=== PATIENT | male | born 1955 | race Caucasian/White ===

== ENCOUNTER 2021-11-10 18:04 | Inpatient (IN) | payer MEDICAID ==
[~2021-11-10] VITALS: Ht 167.6 cm; Wt 62.1 kg
--- NOTE | 2021-11-10 19:41 | NUR ---
RN OPENING NOTES RECEIVED PT IN BED, AWAKE. AOx4, ABLE TO MAKE NEEDS KNOWN. PT IS SYRIAC SPEAKER. ON RA AND TOLERATING WELL. NO SOB NOTED. NO S/SX OF RESPIRATORY DISTRESS NOTED. IV ACCESS LAC #20G. IV IS INTACT, PATENT, AND FLUSHING WELL. SAFETY PRECAUTIONS IN PLACE: BED IN LOWEST, LOCKED POSITION, SIDERAILS UPx2, AND BRAKES ON. TABLE AND CALL LIGHT WITHIN REACH. ALL NEEDS MET AT THIS TIME. Addendum: 11/11/21 at 0254 by KRYSTEN SANDOVAL RN PT IS AOx2-3.
[2021-11-10 20:00] VITALS: BP 122/61
[2021-11-10] MEDS ORDERED: ONDANSETRON HCL/PF 4 MG/2 ML VIAL IVP PRN (22:00)
[2021-11-10] MEDS ORDERED: IV NS 0.9% 1,000 ML IV PRN (22:00)
[2021-11-10 23:25] LABS: BASOPHILS % (AUTO) 0.1 % (0.0-2.0); LYMPHOCYTES # (AUTO) 0.4 K/uL (0.8-4.8); LYMPHOCYTES % (AUTO) 1.3 % (20.0-44.0); MEAN CORPUSCULAR HGB CONC 33 g/dl (31.0-36.0); MEAN CORPUSCULAR VOLUME 84 fL (80-96); MONOCYTES % (AUTO) 3.1 % (2.0-12.0); NEUTROPHILS # (AUTO) 30.8 K/uL (1.8-8.9); NEUTROPHILS % (AUTO) 94.5 % (43.0-81.0); PLATELET COUNT (AUTO) 389 K/uL (150-450); RED BLOOD CELL COUNT(AUTO) 2.32 MIL/uL (4.5-6.0)
[2021-11-10 23:31] LABS: CALCIUM, SERUM 9.1 mg/dL (8.5-10.1); POTASSIUM 4.4 mmol/L (3.5-5.1)
[2021-11-10 23:39] LABS: CREATININE 8.5 mg/dL (0.6-1.3)
--- NOTE | 2021-11-10 23:47 | NUR ---
RN NOTES RECEIVED CRITICAL LAB VALUE FOR BUN OF 119 AND CREATININE OF 8.5. ROGER OTERO NP, MADE AWARE. NO NEW ORDERS.
[2021-11-10] MEDS: IV NS 0.9% 1,000 ML IV PRN (23:51)
[2021-11-11] VITALS (10 sets, daily range): BP systolic 109–145; BP diastolic 62–74
[2021-11-11 00:02] LABS: HEMATOCRIT 20 % (39-51)
[2021-11-11 00:04] LABS: HEMOGLOBIN 6.3 g/dL (13.5-17.5); WHITE BLOOD COUNT (AUTO) 32.5 K/uL (4.3-11.0)
--- NOTE | 2021-11-11 00:16 | NUR ---
RN NOTES ROGER OTERO, ANTON, MADE AWARE OF CRITICAL LAB VALUE OF WBC OF 32.5 AND HEMOGLOBIN OF 6.3. STATED SHE WILL "PLACE ORDERS."
--- NOTE | 2021-11-11 01:23 | NUR ---
RN NOTES CONTACTED GIRLFRIEND OLGA @ AND SHE RELAYED BROTHER'S CONTACT OF TAWNYA KIM WITH NUMBER . ATTEMPTED TO CONTACT BROTHER FOR BLOOD TRANSFUSION CONSENT BUT CALL GOES STRAIGHT TO VOICEMAIL. WILL CONTACT AGAIN AT A LATER.
[2021-11-11 02:28] LABS: BASOPHILS % (MANUAL) 0 % (0.0-2.0); EOSINOPHILS % (MANUAL) 0 % (0-4); LYMPHOCYTES % (MANUAL) 4 % (16-48); MONOCYTES % (MANUAL) 5 % (0-11.0); NEUTROPHILS % (MANUAL) 91 (42-76)
--- NOTE | 2021-11-11 04:33 | NUR ---
RN NOTES ATTEMPTED TO CALL FAMILY MEMBER, TAWNYA, AGAIN WITH NO ANSWER. MADE SENIOR COST ACCOUNTANT, ROGER, AWARE AND SHE GAVE VERBAL CONSENT TO BLOOD TRANSFUSION.
--- NOTE | 2021-11-11 06:44 | NUR ---
RN NOTES RECEIVED FAX FROM [facility] FOR BLOOD CULTURE THAT WAS POSITIVE FOR GRAM POSITIVE [facility] IN [place]. WILL ENDORSE TO ONCOMING SHIFT FOR JERARDO.
--- NOTE | 2021-11-11 07:03 | NUR ---
RN CLOSING NOTES PT IN BED, AWAKE. PT IS ALERT BUT REFUSES TO ANSWER ORIENTATION QUESTION AND ALSO BECOMES AGITATED. PT IS ITALIAN SPEAKER. ON RA AND TOLERATING WELL. NO SOB NOTED. NO S/SX OF RESPIRATORY DISTRESS NOTED. IV ACCESS LAC #20G RUNNING BLOOD TRANSFUSION. NO SIGNS OR SYMPTOMS OF REACTION. ALL ORDERS CARRIED OUT. ALL NEEDS MET. PT KEPT CLEAN AND DRY. SAFETY PRECAUTIONS IN PLACE: BED IN LOWEST, LOCKED POSITION, SIDERAILS UPx2, AND BRAKES ON. TABLE AND CALL LIGHT WITHIN REACH.WILL ENDORSE TO ONCOMING SHIFT FOR JERARDO.
--- NOTE | 2021-11-11 07:50 | NUR ---
RN OPENING NOTE PATIENT AWAKE IN BED RESTING. A/O X 1-2, CONFUSED. NO PAIN NOTED AT THIS TIME. ON ROOM AIR, NO DISTRESS OR SHORTNESS OF BREATH NOTED. IV ACCESS LAC #20G, RFA #20G INTACT, PATENT AND FLUSHING WELL. PATIENT HAVE EXTERNAL PLISSE MACHINE OPERATOR HELPER WITH CURRENT READING OF SR AND HR OF 93. FALL AND SAFETY MEASURES IN PLACE, BED IN LOW AND LOCK POSITION, CALL LIGHT AND TABLE WITHIN EASY REACH, SIDE RAILS UP X2. WILL CONTINUE TO MONITOR.
[2021-11-11] MEDS: PANTOPRAZOLE 40 MG VIAL IV SCH (08:20)
[2021-11-11] MEDS ORDERED: VANCOMYCIN 1 GM in IV D5W 250 ML IV SCH (09:00)
[2021-11-11 09:13] LABS: COLOR,URINE YELLOW (YELLOW); LEUKOCYTE ESTERASE ,URINE MODERATE (NEGATIVE); NITRITE, URINE NEGATIVE (NEGATIVE)
[2021-11-11 09:14] LABS: PH,URINE 6.5 (5.0-8.0); PROTEIN,URINE 1+ mg/dl (NEGATIVE); UROBILINOGEN,URINE 0.2 EU/dL (0.2)
[2021-11-11 09:15] LABS: BILIRUBIN,URINE NEGATIVE (NEGATIVE); UGLUCOSE NEGATIVE (NEGATIVE)
[2021-11-11 10:55] LABS: BACTERIA,URINE Moderate /HPF (None Seen); SQUAMOUS EPITHELIAL CELL,UR Few /HPF (None Seen); WBC,URINE TOO NUMEROUS TO COUN /HPF (0-3)
--- NOTE | 2021-11-11 11:35 | NUR ---
RN NOTE PHARMACY CALLED WITH CRITICAL LABS, WBC: 32.7, BUN:106, Cr:7.6, DOCTOR ALEXANDRO WAS IN THE UNIT AND INFORMED. WILL CONTINUE TO MONITOR.
[2021-11-11 11:40] LABS: BASOPHILS % (AUTO) 0.1 % (0.0-2.0); EOSINOPHILS % (AUTO) 0.8 % (0.0-6.0); HEMATOCRIT 23 % (39-51); HEMOGLOBIN 7.5 g/dL (13.5-17.5); LYMPHOCYTES # (AUTO) 0.4 K/uL (0.8-4.8); LYMPHOCYTES % (AUTO) 1.3 % (20.0-44.0); MEAN CORPUSCULAR HGB CONC 33 g/dl (31.0-36.0); MEAN CORPUSCULAR VOLUME 85 fL (80-96); MONOCYTES # (AUTO) 0.7 K/uL (0.1-1.30); MONOCYTES % (AUTO) 2.1 % (2.0-12.0); NEUTROPHILS # (AUTO) 31.3 K/uL (1.8-8.9); NEUTROPHILS % (AUTO) 95.7 % (43.0-81.0); PLATELET COUNT (AUTO) 394 K/uL (150-450); RED BLOOD CELL COUNT(AUTO) 2.74 MIL/uL (4.5-6.0)
[2021-11-11 11:55] LABS: WHITE BLOOD COUNT (AUTO) 32.7 K/uL (4.3-11.0)
[2021-11-11 12:16] LABS: IRON, SERUM 21 ug/dl (50-175); TOTAL IRON BINDING CAPACITY 90 ug/dl (250-450)
[2021-11-11 12:18] LABS: CALCIUM, SERUM 9.7 mg/dL (8.5-10.1); MAGNESIUM 2.4 mg/dL (1.8-2.4); PHOSPHORUS 4.3 mg/dL (2.5-4.9)
[2021-11-11 12:28] LABS: CREATININE 7.6 mg/dL (0.6-1.3)
[2021-11-11] MEDS: ACETAMINOPHEN 325 MG TABLET PO PRN (12:47)
[2021-11-11 13:14] LABS: LYMPHOCYTES % (MANUAL) 2 % (16-48); MONOCYTES % (MANUAL) 2 % (0-11.0); NEUTROPHILS % (MANUAL) 96 (42-76)
[2021-11-11 13:26] LABS: FERRITIN 3085 ng/mL (8-388)
--- NOTE | 2021-11-11 18:54 | NUR ---
RN CLOSING NOTE PATIENT AWAKE IN BED RESTING. A/O X 1-2, CONFUSED. NO PAIN NOTED AT THIS TIME. ON ROOM AIR, NO DISTRESS OR SHORTNESS OF BREATH NOTED. IV ACCESS LAC #20G, RFA #20G INTACT, PATENT AND FLUSHING WELL. PATIENT HAVE EXTERNAL METALIZING SUPERVISOR WITH CURRENT READING OF SR AND HR OF 80. SCHEDULE MEDICATIONS ADMINISTERED. FALL AND SAFETY MEASURES IN PLACE, BED IN LOW AND LOCK POSITION, CALL LIGHT AND TABLE WITHIN EASY REACH, SIDE RAILS UP X2. WILL ENDORSE TO FLY RAIL OPERATOR.
[2021-11-11] MEDS ORDERED: MAG HYDROX/AL HYDROX/SIMETH 30 ML UDC PO PRN (19:00)
--- NOTE | 2021-11-11 19:30 | NUR ---
RN OPENING NOTE PATIENT IN BED, AWAKE. FAMILY AT BEDSIDE, GIRLFRIEND AND BROTHER ARNEL. PATIENT IS ON RA, TOLERATING WELL. NO SOB NOTED. BREATHING EVEN AND UNLABORED. PATIENT IS ON TELE MONITOR READING SR 85 BPM. PER GF, PATIENT WAS COMPLAINING OF SOME INDIGESTION, PER AGUS MACDONALD, CHANTEL PENDING VERIFICATION. SAFETY MEASURES IN PLACE: BED LOCKED AND IN LOWEST POSITION, CALL LIGHT WITHIN REACH, SIDE RAILS UP. WILL MONITOR PATIENT CLOSELY.
--- NOTE | 2021-11-11 20:30 | NUR ---
PATIENT GIVEN MAALOX FOR INDIGESTION/STOMACH PAIN.
[2021-11-11] MEDS: HEPARIN SODIUM, PORCINE 5000 UNITS/1 ML VIAL SQ SCH (21:36)
--- NOTE | 2021-11-11 21:37 | NUR ---
PER MD JIMENEZ TO GIVE HEPARIN 5,000 UNITS DOSE TONIGHT IF NO SIGNS OF BLEEDING. PATIENT DOES NOT HAVE ANY SIGNS OF BLEEDING AT THIS TIME.
[2021-11-11] MEDS: IV NS 0.9% 1,000 ML IV PRN (22:47)
[2021-11-12 00:29] VITALS: BP 135/70
[2021-11-12 04:00] VITALS: BP 136/72
[2021-11-12] MEDS: ACETAMINOPHEN 325 MG TABLET PO PRN ×2 (04:42→15:32)
--- NOTE | 2021-11-12 04:50 | NUR ---
PATIENT NOTED TO BE MOANING AND RESTLESS. TYLENOL GIVEN FOR PAIN ON HIS BACK.
[2021-11-12 06:05] LABS: EOSINOPHILS % (AUTO) 0.1 % (0.0-6.0); HEMATOCRIT 23 % (39-51); HEMOGLOBIN 7.6 g/dL (13.5-17.5); LYMPHOCYTES # (AUTO) 0.5 K/uL (0.8-4.8); LYMPHOCYTES % (AUTO) 1.3 % (20.0-44.0); MEAN CORPUSCULAR HGB CONC 33 g/dl (31.0-36.0); MEAN CORPUSCULAR VOLUME 86 fL (80-96); MONOCYTES # (AUTO) 1.1 K/uL (0.1-1.30); NEUTROPHILS # (AUTO) 35.3 K/uL (1.8-8.9); NEUTROPHILS % (AUTO) 95.6 % (43.0-81.0); PLATELET COUNT (AUTO) 381 K/uL (150-450); RED BLOOD CELL COUNT(AUTO) 2.72 MIL/uL (4.5-6.0)
[2021-11-12 06:19] LABS: MAGNESIUM 2.3 mg/dL (1.8-2.4); PHOSPHORUS 4.3 mg/dL (2.5-4.9); POTASSIUM 4.1 mmol/L (3.5-5.1)
--- NOTE | 2021-11-12 06:53 | NUR ---
RN CLOSING NOTE PATIENT IN BED, EYES CLOSED, EASILY AWAKENED. PATIENT IS A/O X 1-2. MAKES NEEDS KNOWN WHEN ASKED. PATIENT IS ON RA, TOLERATING WELL. NO SOB NOTED. BREATHING EVEN AND UNLABORED. PATIENT IS ON TELE MONITOR READING SR-ST 108 BPM. RFA 20 G RUNNING NS AT 100 ML/HR, INFUSING WELL. LAC 20G SALINE LOCKED AT THIS TIME. SAFETY MEASURES IN PLACE: BED LOCKED AND IN LOWEST POSITION, CALL LIGHT WITHIN REACH, SIDE RAILS UP. ALL NEEDS MET AND ATTENDED. ALL ORDERS CARRIED OUT. WILL ENDORSE TO DAY SHIFT NURSE FOR JERARDO.
--- NOTE | 2021-11-12 07:15 | NUR ---
TACTICAL DEBRIEFER OPENING NOTES: RECIEVED PATIENT IN BED, ASLEEP AND EASILY AROUSED WITH STIMULI. NO SOB OR CARDIAC DISTRESS NOTED, AFEBRILE, ON ROOM AIR AND TOLERATING WELL. ON DIRECTOR OF CORPORATE STRATEGY: CURRENT READING SINUS TACH 102 BOM Addendum: 11/12/21 at 0921 by CHRISTELLE CISNEROS RN UNFINISHED
--- NOTE | 2021-11-12 07:15 | NUR ---
LICENSED PROSTHETIST/ORTHOTIST OPENING NOTES: RECEIVED PATIENT IN BED, ASLEEP AND EASILY AROUSED WITH STIMULI. NO SOB OR CARDIAC DISTRESS NOTED, AFEBRILE, ON ROOM AIR AND TOLERATING WELL. ON CENTER DIRECTOR: CURRENT READING SINUS TACH 102 BPM, IV ACCESS ON LAC G#20, RFA G#20 NS @100ML/HR. PATENT INTACT AND INFUSING IVF WELL. DENIES PAIN AT THIS TIME. SAFETY PRECAUTIONS MAINTAINED: BED LOCKED AND IN LOWEST POSITION, SIDE RAILS UP X 2 CALL LIGHT IN EASY REACH FOR HELP, WILL MONITOR ACCORDINGLY.
[2021-11-12 08:00] VITALS: BP 120/72
[2021-11-12] MEDS: HEPARIN SODIUM, PORCINE 5000 UNITS/1 ML VIAL SQ SCH ×2 (08:33→21:22)
[2021-11-12] MEDS: PANTOPRAZOLE 40 MG VIAL IV SCH (08:34)
[2021-11-12 10:32] LABS: LYMPHOCYTES % (MANUAL) 4 % (16-48); MONOCYTES % (MANUAL) 2 % (0-11.0); NEUTROPHILS % (MANUAL) 94 (42-76)
[2021-11-12 12:00] VITALS: BP_SYST 119; BP_SYST 136; BP_DIAS 66; BP_DIAS 69
[2021-11-12] MEDS: IV NS 0.9% 1,000 ML IV PRN (15:32)
[2021-11-12 16:00] VITALS: BP_SYST 119; BP_DIAS 56; BP_DIAS 72
--- NOTE | 2021-11-12 19:01 | NUR ---
POLICY AND PLANNING MANAGER CLOSING NOTES: PATIENT IN BED, AWAKE. A/O X 2. NO SOB OR CARDIAC DISTRESS NOTED, AFEBRILE, ON ROOM AIR AND TOLERATING WELL. ON ICT QUALITY ASSURANCE ENGINEER: CURRENT READING SINUS RHYTHM 94 BPM, IV ACCESS ON LAC G#20, RFA G#20 NS @100ML/HR. PATENT INTACT AND INFUSING IVF WELL. DENIES PAIN AT THIS TIME. SAFETY PRECAUTIONS MAINTAINED: BED LOCKED AND IN LOWEST POSITION, SIDE RAILS UP X 2 CALL LIGHT IN EASY REACH FOR HELP, WILL MONITOR ACCORDINGLY. ENDORSED TO [facility] SHIFT FOR JERARDO.
[2021-11-12 20:00] VITALS: BP 126/73
--- NOTE | 2021-11-12 20:10 | NUR ---
RN OPENING NOTE PATIENT ASLEEP IN BED. A/OX1. NO S/S OF DISTRESS, BREATHING WITHOUT DIFFICULTY ON ROOM AIR. LAC #20 SL INTACT AND PATENT; RFA #20 INTACT AND PATENT W/ NS 100ML/HR. TELE READS SR 94. SAFETY MEASURES IN PLACE: BED AT LOWEST LEVEL AND LOCKED, RAILS UP X2, CALL DUONG WITHIN REACH. WILL CONTINUE TO MONITOR PATIENT.
[2021-11-12] MEDS ORDERED: CEFEPIME 1 GM VIAL ONE (22:59)
[2021-11-12] MEDS: CEFEPIME 1 GM in IV D5W 50 ML IV SCH (23:48)
[2021-11-13] VITALS: BP 151/73
[2021-11-13 04:00] VITALS: BP 152/75
[2021-11-13] MEDS: IV NS 0.9% 1,000 ML IV PRN ×2 (05:30→18:22)
[2021-11-13 06:04] LABS: EOSINOPHILS % (AUTO) 0.1 % (0.0-6.0); HEMATOCRIT 27 % (39-51); HEMOGLOBIN 8.4 g/dL (13.5-17.5); LYMPHOCYTES # (AUTO) 0.9 K/uL (0.8-4.8); LYMPHOCYTES % (AUTO) 2.2 % (20.0-44.0); MEAN CORPUSCULAR HGB CONC 32 g/dl (31.0-36.0); MEAN CORPUSCULAR VOLUME 88 fL (80-96); MONOCYTES # (AUTO) 1.2 K/uL (0.1-1.30); MONOCYTES % (AUTO) 3.2 % (2.0-12.0); NEUTROPHILS # (AUTO) 37.2 K/uL (1.8-8.9); NEUTROPHILS % (AUTO) 94.5 % (43.0-81.0); PLATELET COUNT (AUTO) 409 K/uL (150-450); RED BLOOD CELL COUNT(AUTO) 3.01 MIL/uL (4.5-6.0)
--- NOTE | 2021-11-13 06:44 | NUR ---
RN CLOSING NOTE PATIENT AWAKE IN BED. A/OX4. NO S/S OF DISTRESS, BREATHING WITHOUT DIFFICULTY ON ROOM AIR. LAC #20 SL INTACT AND PATENT; RFA #20 INTACT AND PATENT W/ NS 100ML/HR. TELE READS SR 95. SAFETY MEASURES IN PLACE: BED LOCKED AND AT LOWEST POSITION, RAILS UP X2, CALL DUONG WITHIN REACH. WILL ENDORSE TO NEXT SHIFT FOR JERARDO.
[2021-11-13 07:10] LABS: CALCIUM, SERUM 10.3 mg/dL (8.5-10.1); CREATININE 5.9 mg/dL (0.6-1.3); MAGNESIUM 2.3 mg/dL (1.8-2.4); PHOSPHORUS 4.8 mg/dL (2.5-4.9); POTASSIUM 4.1 mmol/L (3.5-5.1)
--- NOTE | 2021-11-13 07:30 | NUR ---
MICA PARTS SPRAYER NOTES PT IN BED, AWAKE, ALERT AND VERBALLY RESPONSIVE, NO COMPLAINT OF PAIN, BREATHING PATTERN NORMAL, CALL LIGHT WITHIN REACH, F/C IN PLACE, BED AT ITS LOWEST POSITION, KEPT COMFORTABLE.
[2021-11-13 08:00] VITALS: BP 150/76
[2021-11-13 08:37] LABS: WHITE BLOOD COUNT (AUTO) 39.4 K/uL (4.3-11.0)
[2021-11-13] MEDS: PANTOPRAZOLE 40 MG TABLET.DR PO SCH (09:22)
[2021-11-13] MEDS: HEPARIN SODIUM, PORCINE 5000 UNITS/1 ML VIAL SQ SCH ×2 (09:23→21:03)
--- NOTE | 2021-11-13 10:15 | NUR ---
BRAKE RELINER NOTES PT SEEN AND ASSESSED AT BEDSIDE BY SPEECH THERAPIST FRANCK, RECOMMENDATIONS NOTED.
[2021-11-13 12:00] VITALS: BP 157/81
[2021-11-13] MEDS: ACETAMINOPHEN 325 MG TABLET PO PRN ×2 (12:38→20:19)
[2021-11-13] MEDS ORDERED: VANCOMYCIN 0.75 GM in IV D5W 250 ML IV SCH (13:00)
[2021-11-13 13:45] LABS: THYROID STIMULATING HORMONE 1.588 uIU/mL (0.358-3.74)
[2021-11-13 14:04] LABS: BASOPHILS % (MANUAL) 0 % (0.0-2.0); EOSINOPHILS % (MANUAL) 0 % (0-4); LYMPHOCYTES % (MANUAL) 4 % (16-48); MONOCYTES % (MANUAL) 5 % (0-11.0); NEUTROPHILS % (MANUAL) 91 (42-76)
[2021-11-13 16:00] VITALS: BP 124/76
--- NOTE | 2021-11-13 18:33 | NUR ---
AIR TWISTER WINDER NOTES PT IN BED, AWAKE, ALERT AND VERBALLY RESPONSIVE, NOT IN DISTRESS, FAMILY AT BEDSIDE, NO COMPLAINT AT THIS TIME, IV FLUIDS INFUSING WELL, CALL LIGHT WITHIN REACH, F/C IN PLACE AND DRAINING WELL WITH CLEAR, YELLOW URINE, PM CARE PROVIDED, AFEBRILE AT THIS TIME, ALL NEEDS ATTENDED.
--- NOTE | 2021-11-13 20:28 | NUR ---
MS/TELE/RN ON INITIAL SHIFT ROUND AT 1930, PATIENT WAS IN BED AWAKE, ALERT, NO C/O PAIN, NO SIGNS DISTRESS NOTED, CALL LIGHT IN REACH, FALL PRECAUTIONS PER PROTOCOL IMPLEMENTED. PRESENTLY, PATIENT C/O MILD PAIN AT BOTH SHOULDERS REQUESTED FOR MEDICATION, TYLENOL 65F0 MG PO WAS GIVEN ORDERED. WILL MONITOR.
[2021-11-13 20:35] VITALS: BP 152/70
[2021-11-13] MEDS: CEFEPIME 1 GM in IV D5W 50 ML IV SCH (21:02)
[2021-11-14] VITALS (8 sets, daily range): BP systolic 134–176; BP diastolic 63–99
--- NOTE | 2021-11-14 00:27 | NUR ---
MS/TELE/RN PATIENT IS SLEEPING AT THIS TIME, NO SIGNS OF DISTRESS NOTED, CALL LIGHT IN REACH, WILL CONTINUE TO MONITOR.
[2021-11-14] MEDS: IV NS 0.9% 1,000 ML IV PRN ×2 (05:50→16:54)
--- NOTE | 2021-11-14 06:23 | NUR ---
MS/TELE/RN PATIENT IS STILL SLEEPING, NO SIGNS OF DISTRESS NOTED, CALL LIGHT IN REACH, ALL NEEDS ATTENDED AT THIS TIME, WILL CONTINUE TO MONITOR.
[2021-11-14 06:46] LABS: EOSINOPHILS % (AUTO) 0.2 % (0.0-6.0); HEMATOCRIT 27 % (39-51); HEMOGLOBIN 8.4 g/dL (13.5-17.5); LYMPHOCYTES # (AUTO) 0.8 K/uL (0.8-4.8); MEAN CORPUSCULAR HGB CONC 32 g/dl (31.0-36.0); MEAN CORPUSCULAR VOLUME 87 fL (80-96); MONOCYTES # (AUTO) 1.1 K/uL (0.1-1.30); MONOCYTES % (AUTO) 2.9 % (2.0-12.0); NEUTROPHILS # (AUTO) 35.8 K/uL (1.8-8.9); NEUTROPHILS % (AUTO) 94.9 % (43.0-81.0); PLATELET COUNT (AUTO) 438 K/uL (150-450); RED BLOOD CELL COUNT(AUTO) 3.06 MIL/uL (4.5-6.0)
[2021-11-14 06:53] LABS: WHITE BLOOD COUNT (AUTO) 37.7 K/uL (4.3-11.0)
[2021-11-14 06:57] LABS: CALCIUM, SERUM 9.8 mg/dL (8.5-10.1); CREATININE 4.8 mg/dL (0.6-1.3); POTASSIUM 3.8 mmol/L (3.5-5.1)
[2021-11-14 07:06] LABS: IMMUNOGLOBULIN A, SERUM 316 mg/dL (61-437); IMMUNOGLOBULIN G, SERUM 1615 mg/dL (603-1613); IMMUNOGLOBULIN M, SERUM 32 mg/dL (20-172)
--- NOTE | 2021-11-14 07:30 | NUR ---
SUPERVISOR TELLERS NOTES PT IN BED, AWAKE, ALERT AND VERBALLY RESPONSIVE, WITH PERIODS OF CONFUSION, NO SIGN OF PAIN, IV FLUIDS INFUSING WELL, CALL LIGHT WITHIN REACH, F/C IN PLACE, DRAINING WELL WITH CLEAR, YELLOW URINE, KEPT CLEAN AND DRY.
[2021-11-14] MEDS: PANTOPRAZOLE 40 MG TABLET.DR PO SCH (08:28)
[2021-11-14] MEDS: HEPARIN SODIUM, PORCINE 5000 UNITS/1 ML VIAL SQ SCH ×2 (08:29→21:15)
--- NOTE | 2021-11-14 10:18 | NUR ---
ENTRY LEVEL FINANCE NOTES PT RESTING, SEEN AND EXAMINED BY DR. CHILO MD INFORMED OF ELEVATED BP, AWAITING FURTHER ORDERS.
[2021-11-14 12:03] LABS: BASOPHILS % (MANUAL) 0 % (0.0-2.0); EOSINOPHILS % (MANUAL) 0 % (0-4); LYMPHOCYTES % (MANUAL) 5 % (16-48); NEUTROPHILS % (MANUAL) 92 (42-76)
[2021-11-14] MEDS: VANCOMYCIN 1 GM in IV D5W 250ml IV SCH (12:26)
[2021-11-14] MEDS: CLONIDINE HCL 0.1 MG TABLET PO PRN (13:15)
[2021-11-14 14:08] LABS: *SPE A/G RATIO 0.5 (0.7-1.7); *SPE ALPHA-1-GLOBULIN 0.6 g/dL (0.0-0.4); *SPE ALPHA-2-GLOBULIN 0.9 g/dL (0.4-1.0); *SPE BETA GLOBULIN 0.9 g/dL (0.7-1.3); *SPE M-SPIKE Not Observed g/dL (Not Observed)
--- NOTE | 2021-11-14 18:14 | NUR ---
COMFORT ADVISOR NOTES PT IN BED, AWAKE, ALERT AND VERBALLY RESPONSIVE, MORE ALERT AND RESPONSIVE TODAY, OLGA AT BEDSIDE, IV FLUIDS INFUSING WELL, CALL LIGHT WITHIN REACH, AFEBRILE DURING THE SHIFT, ABLE TO TOLERATE PHYSICAL THERAPY EXERCISES EARLIER, WITH IMPROVED DIET TODAY, PM CARE PROVIDED, NEEDS ATTENDED.
--- NOTE | 2021-11-14 19:54 | NUR ---
RELASTER OPENING NOTES: RECEIVED PATIENT AWAKE IN BED ACCOMPANIED BY , BED IN LOW POSITION CALL LIGHTS WITHIN REACH, NO COMPLAIN OF PAIN AND DISCOMFORT AT THIS TIME, ON ROOM AIR SATURATING WELL, NO SOB WAS OBSERVED, PATIENT IS A/OX 1-2 ARMENIAN SPEAKING, ON BED REST, IV LINE AT LAC#20 WITH ONGOING NSS@100ML/HR INFUSING WELL, ON TELE MONITOR- SR-91, PATIENT KEPT CLEAN AND DRY ALL NEEDS MET WILL CONTINUE TO MONITOR.
[2021-11-14] MEDS: CEFEPIME 1 GM in IV D5W 50 ML IV SCH (21:14)
[2021-11-15] VITALS (8 sets, daily range): BP systolic 142–166; BP diastolic 70–80
[2021-11-15] MEDS: IV NS 0.9% 1,000 ML IV PRN ×2 (04:33→15:57)
[2021-11-15] MEDS: ACETAMINOPHEN 325 MG TABLET PO PRN ×2 (05:37→14:49)
[2021-11-15 05:53] LABS: BASOPHILS % (AUTO) 0.2 % (0.0-2.0); EOSINOPHILS % (AUTO) 0.3 % (0.0-6.0); HEMATOCRIT 25 % (39-51); HEMOGLOBIN 8.1 g/dL (13.5-17.5); LYMPHOCYTES % (AUTO) 3.2 % (20.0-44.0); MEAN CORPUSCULAR HGB CONC 32 g/dl (31.0-36.0); MEAN CORPUSCULAR VOLUME 87 fL (80-96); MONOCYTES # (AUTO) 1.2 K/uL (0.1-1.30); NEUTROPHILS # (AUTO) 28.6 K/uL (1.8-8.9); NEUTROPHILS % (AUTO) 92.3 % (43.0-81.0); PLATELET COUNT (AUTO) 491 K/uL (150-450); RED BLOOD CELL COUNT(AUTO) 2.93 MIL/uL (4.5-6.0)
[2021-11-15 06:27] LABS: WHITE BLOOD COUNT (AUTO) 30.9 K/uL (4.3-11.0)
--- NOTE | 2021-11-15 06:30 | NUR ---
RN NOTES: RECEIVED A CRITICAL LAB RESULT FOR PATIENT AT 0628 WITH WBC-30.9, NONE REPORTED WBC IS TRENDING DOWN, WILL CONTINUE TO MONITOR.
[2021-11-15 07:08] LABS: CALCIUM, SERUM 9.7 mg/dL (8.5-10.1); CREATININE 4.3 mg/dL (0.6-1.3); POTASSIUM 3.3 mmol/L (3.5-5.1)
--- NOTE | 2021-11-15 07:30 | NUR ---
SIMULATION SOFTWARE ENGINEER OPENING NOTES: RECEIVED PATIENT IN BED, ASLEEP AND EASILY AROUSED WITH STIMULI. NO SOB OR CARDIAC DISTRESS NOTED, AFEBRILE, ON ROOM AIR AND TOLERATING WELL. ON MANAGER DATA: CURRENT READING SINUS RHYTHM 91 BPM, IV ACCESS ON LAC G#20 @100ML/HR. PATENT INTACT AND INFUSING IVF WELL. DENIES PAIN AT THIS TIME. SAFETY PRECAUTIONS MAINTAINED: BED LOCKED AND IN LOWEST POSITION, SIDE RAILS UP X 2 CALL LIGHT IN EASY REACH FOR HELP, WILL MONITOR ACCORDINGLY.
--- NOTE | 2021-11-15 07:40 | NUR ---
RECEIVING TEAM MEMBER CLOSING NOTES: PATIENT AWAKE IN BED COMFORTABLE NO COMPLAIN OF PAIN AND DISCOMFORT , ON ROOM AIR SATURATING WELL, PATIENT ON TELE MONITOR- SR-76, ON ROJO CATHETER 1700 URINE OUT, ON IV FLUID OF 0.9NSS@100ML/HR INFUSING WELL, PATIENT KEPT CLEAN AND DRY ALL NEEDS MET ENDORSE TO INCOMING SHIFT.
[2021-11-15] MEDS: PANTOPRAZOLE 40 MG TABLET.DR PO SCH (08:43)
[2021-11-15] MEDS: HEPARIN SODIUM, PORCINE 5000 UNITS/1 ML VIAL SQ SCH ×2 (08:45→20:45)
[2021-11-15 09:58] LABS: MONOCYTES % (MANUAL) 3 % (0-11.0)
[2021-11-15 09:59] LABS: BASOPHILS % (MANUAL) 0 % (0.0-2.0); EOSINOPHILS % (MANUAL) 0 % (0-4); LYMPHOCYTES % (MANUAL) 4 % (16-48); MONOCYTES % (MANUAL) 5 % (0-11.0); NEUTROPHILS % (MANUAL) 91 (42-76)
[2021-11-15] MEDS: VANCOMYCIN 1 GM in IV D5W 250ml IV SCH (12:42)
--- NOTE | 2021-11-15 18:51 | NUR ---
RN NOTES: REINSERTED GAUGE 22 ON RIGHT HAND. PATIENT TOLERATED WELL.
--- NOTE | 2021-11-15 18:53 | NUR ---
PARTY PLAN SALES CONSULTANT CLOSING NOTES: PATIENT IN BED AWAKE, ALERT AND ORIENTED X 3 ABLE TO VERBALIZED NEEDS. OLGA AT BED SIDE. NO SOB OR CARDIAC DISTRESS NOTED. DENIES PAIN AT THIS TIME. ON PRINTER SLOTTER HELPER WITH CURRENT READING SINUS 92 BPM.ON ROOM AIR. IV ACCESS ON R HAND GAUGE 22 RUNNING NS @100CC/HR. PATENT AND INTACT. KEPT RESTED AND COMFORTABLE.ROJO CATH IN PLACE DRAINING CLEAR YELLOW COLORED URINE VIA GRAVITY. SAFETY MEASURES MAINTAINED: BED LOCKED AND IN LOWEST POSITION, SIDE RAILS UP X 2. CALL LIGHT IN EASY REACH FOR HELP. WILL NONITOR ACCORDINGLY. ENDORSED TO [facility] SHIFT NURSE FOR JERARDO.
--- NOTE | 2021-11-15 19:50 | NUR ---
RN OPENING NOTES RECEIVED PT IN BED, AWAKE WITH FAMILY AT BEDSIDE. AOx3. ON RA AND TOLERATING WELL. NO SOB NOTED. NO S/SX OF RESPIRATORY DISTRESS NOTED. TELE MONITOR DETECTS SINUS RHYTHM WITH RATE OF 90s. IV ACCESS IN R HAND #22G RUNNING NS @ 100 ML/HR. ROJO CATHETER IN PLACE: DRAINING CLEAR, YELLOW URINE. SAFETY PRECAUTIONS IN PLACE: BED IN LOWEST, LOCKED POSITION, SIDERAILS UPx2, AND BRAKES ON. TABLE AND CALL LIGHT WITHIN REACH. WILL CONTINUE TO MONITOR.
[2021-11-15] MEDS: CEFEPIME 1 GM in IV D5W 50 ML IV SCH (20:44)
[2021-11-16] VITALS: BP 136/61
[2021-11-16] MEDS: IV NS 0.9% 1,000 ML IV PRN ×2 (03:50→21:43)
[2021-11-16 04:53] VITALS: BP 117/70
[2021-11-16 06:16] LABS: BASOPHILS % (AUTO) 0.1 % (0.0-2.0); EOSINOPHILS % (AUTO) 0.5 % (0.0-6.0); HEMATOCRIT 22 % (39-51); HEMOGLOBIN 7.2 g/dL (13.5-17.5); LYMPHOCYTES # (AUTO) 0.8 K/uL (0.8-4.8); LYMPHOCYTES % (AUTO) 3.1 % (20.0-44.0); MEAN CORPUSCULAR HGB CONC 32 g/dl (31.0-36.0); MEAN CORPUSCULAR VOLUME 86 fL (80-96); MONOCYTES # (AUTO) 0.9 K/uL (0.1-1.30); MONOCYTES % (AUTO) 3.7 % (2.0-12.0); NEUTROPHILS # (AUTO) 23.1 K/uL (1.8-8.9); NEUTROPHILS % (AUTO) 92.6 % (43.0-81.0); PLATELET COUNT (AUTO) 481 K/uL (150-450); RED BLOOD CELL COUNT(AUTO) 2.59 MIL/uL (4.5-6.0); WHITE BLOOD COUNT (AUTO) 24.9 K/uL (4.3-11.0)
[2021-11-16 06:32] LABS: CREATININE 3.7 mg/dL (0.6-1.3); POTASSIUM 3.3 mmol/L (3.5-5.1)
--- NOTE | 2021-11-16 07:00 | NUR ---
MS RN OPENING NOTES PATIENT LAYING IN BED, ASLEEP, TOLERATING WELL ON ROOM AIR WITH NO S/S RESPIRATORY DISTRESS. NO COMPLAINTS OF PAIN OR DISCOMFORT AT THIS TIME. MICK MONITOR IN PLACE READING NSR 88. R FA # 22 G IV CLEAN, INTACT, AND INFUSING NS @ 100 ML/HR. R FA # 20 G SL CLEAN, INTACT, AND FLUSHING WELL. ROJO CATH IN PLACE DRAINING CLEAR YELLOW URINE TO GRAVITY. SAFETY MEASURES IN PLACE: BED IN LOWEST LOCKED POSITION, SIDE RAILS UP X 2, CALL LIGHT WITHIN REACH. WILL CONTINUE TO MONITOR.
--- NOTE | 2021-11-16 07:49 | NUR ---
RN CLOSING NOTES PT IN BED, ASLEEP, AWAKENS TO VERBAL STIMULI. NO DISTRESS NOTED. REPORT GIVEN TO DAYSHIFT RN.
[2021-11-16] MEDS: PANTOPRAZOLE 40 MG TABLET.DR PO SCH (08:53)
[2021-11-16] MEDS: HEPARIN SODIUM, PORCINE 5000 UNITS/1 ML VIAL SQ SCH ×2 (08:57→21:00)
[2021-11-16] MEDS ORDERED: HYDROMORPHONE 1 MG/1 ML DISP.SYRIN IV ONE (09:00)
[2021-11-16 09:33] LABS: LYMPHOCYTES % (MANUAL) 4 % (16-48); MONOCYTES % (MANUAL) 4 % (0-11.0); NEUTROPHILS % (MANUAL) 92 (42-76)
[2021-11-16 12:12] VITALS: BP 153/67
[2021-11-16] MEDS: CEFTRIAXONE 2 G in IV D5W 100 ML IV SCH (12:34)
[2021-11-16] MEDS: ACETAMINOPHEN 325 MG TABLET PO PRN (15:46)
[2021-11-16 16:25] VITALS: BP 140/60
--- NOTE | 2021-11-16 19:30 | NUR ---
RN OPENING NOTE RECEIVED PT FROM [facility] FOR JERARDO. PT IN BED, AWAKE WITH FAMILY AT BEDSIDE. AO x 2-3, NAURUAN SPEAKING ONLY. CURRENTLY ON RA, TOLERATING WELL. NO SOB, BREATHING EVEN AND UNLABORED. NO S/SX OF RESPIRATORY DISTRESS NOTED AT THIS TIME. TELE MONITOR SHOWS SINUS RHYTHM WITH HR IN 90s. IV ACCESS NOTED IN RFA, PATENT AND INTACT, #22G RUNNING NS @ 100 ML/HR. IV ACCESS NOTED IN R HAND, TOO. ROJO CATHETER IN PLACE DRAINING CLEAR, YELLOW URINE BY GRAVITY. ALL SAFETY PRECAUTIONS IN PLACE: BED IN LOWEST, LOCKED POSITION, SIDE RAILS UP x 2. CALL LIGHT WITHIN REACH. WILL CONTINUE TO MONITOR PT.
[2021-11-16 20:00] VITALS: BP 119/68
--- NOTE | 2021-11-16 21:08 | NUR ---
RN NOTE WITHHELD HEPARIN FOR 2100 SCHEDULE PER RUBBER BOOTS AND SHOES REPAIRER CHEVY DANG. HGB 7.2
[2021-11-16] MEDS: HYDROMORPHONE 1 MG/1 ML DISP.SYRIN IV PRN (21:22)
--- NOTE | 2021-11-16 21:30 | NUR ---
RN NOTE PT SHOWS SIGNS OF PAIN: RESTLESS, MOANING, GROANING WITH FACIAL GRIMACE. PT UNABLE TO EXPRESS SELF DUE TO LANGUAGE BARRIER. SPEAKS TURKMEN ONLY. ADMINISTERED DILAUDID PER ORDERED. WILL MONITOR AND REASSESS PT FOR ANY CHANGES.
[2021-11-17] VITALS (15 sets, daily range): BP systolic 121–169; BP diastolic 63–89
[2021-11-17] MEDS: HYDROMORPHONE 1 MG/1 ML DISP.SYRIN IV PRN ×3 (05:14→22:49)
[2021-11-17 06:11] LABS: BASOPHILS # (AUTO) 0.1 K/uL (0.0-0.2); BASOPHILS % (AUTO) 0.6 % (0.0-2.0); EOSINOPHILS % (AUTO) 0.6 % (0.0-6.0); HEMATOCRIT 22 % (39-51); LYMPHOCYTES # (AUTO) 0.9 K/uL (0.8-4.8); LYMPHOCYTES % (AUTO) 4.1 % (20.0-44.0); MEAN CORPUSCULAR HGB CONC 32 g/dl (31.0-36.0); MEAN CORPUSCULAR VOLUME 86 fL (80-96); MONOCYTES % (AUTO) 4.3 % (2.0-12.0); NEUTROPHILS # (AUTO) 20.9 K/uL (1.8-8.9); NEUTROPHILS % (AUTO) 90.4 % (43.0-81.0); PLATELET COUNT (AUTO) 515 K/uL (150-450); RED BLOOD CELL COUNT(AUTO) 2.54 MIL/uL (4.5-6.0); WHITE BLOOD COUNT (AUTO) 23.2 K/uL (4.3-11.0)
--- NOTE | 2021-11-17 06:16 | NUR ---
RN CLOSING NOTES PT IN BED, ASLEEP, AWAKENS TO VERBAL STIMULI. NO DISTRESS NOTED AT THIS TIME. PAIN MED GIVEN AT 0515, PT IS NOW RESTING COMFORTABLY. WILL ENDORSE TO AM SHIFT NURSE FOR JERARDO.
[2021-11-17] MEDS: IV NS 0.9% 1,000 ML IV PRN (06:41)
--- NOTE | 2021-11-17 06:46 | NUR ---
RN NOTE RECEIVED LAB REPORT HGB 7.0 HCT 22 WBC 23
[2021-11-17 06:49] LABS: CREATININE 3.3 mg/dL (0.6-1.3); POTASSIUM 3.1 mmol/L (3.5-5.1)
--- NOTE | 2021-11-17 07:00 | NUR ---
MS RN OPENING NOTES PATIENT LAYING IN BED, A/O X 1-2, CONFUSED, TOLERATING WELL ON ROOM AIR WITH NO S/S RESPIRATORY DISTRESS. NO COMPLAINTS OF PAIN OR DISCOMFORT AT THIS TIME. TELE MONITOR IN PLACE WITH SR 84. R HAND # 22 G CLEAN, INTACT, INFUSING NS @ 100 ML/HR. R FA # 20 SL CLEAN, INTACT, AND FLUSHING WELL. SAFETY MEASURES IN PLACE: BED IN LOWEST LOCKED POSITION, SIDE RAILS UP X 2, CALL LIGHT WITHIN REACH. WILL CONTINUE TO MONITOR.
[2021-11-17] MEDS: PANTOPRAZOLE 40 MG TABLET.DR PO SCH (08:23)
[2021-11-17] MEDS: HEPARIN SODIUM, PORCINE 5000 UNITS/1 ML VIAL SQ SCH ×2 (08:23→21:00)
[2021-11-17] MEDS: CEFTRIAXONE 2 G in IV D5W 100 ML IV SCH (11:29)
[2021-11-17] MEDS: LORAZEPAM 1 MG TABLET PO PRN (11:44)
[2021-11-17] MEDS: ACETAMINOPHEN 325 MG TABLET PO PRN (11:44)
[2021-11-17] MEDS ORDERED: POTASSIUM CHLORIDE 20 MEQ TAB.PRT.SR PO ONE (12:00)
[2021-11-17] MEDS ORDERED: HYDROMORPHONE 1 MG/1 ML DISP.SYRIN IV ONE (13:00)
--- NOTE | 2021-11-17 16:19 | NUR ---
MS RN NOTES RECEIVED ORDER FROM MD TO TRANSFUSE 1 UNIT PRBC. BLOOD PRODUCT RECEIVED FROM BLOOD BANK AND VERIFIED WITH LAB STAFF. VERIFIED AGAIN WITH RN PRIOR TO BEGINNING INFUSION. BLOOD TRANSFUSION INITIATED @ 1607 AND V/S MONITORED PER PROTOCOL.
--- NOTE | 2021-11-17 16:21 | NUR ---
MS RN NOTE RECEIVED CALL FROM [facility] [employer] WHO STATED PATIENT HEAD CT WAS NEGATIVE FOR ANY ABNORMALITIES.
--- NOTE | 2021-11-17 19:00 | NUR ---
HERBARIUM WORKER NOTES PATIENT NOTED WITH INCREASED LEFT ARM WEAKNESS AND SWELLING WHICH HAS INCREASED GRADUALLY SINCE ADMISSION, MD MADE AWARE
--- NOTE | 2021-11-17 20:00 | NUR ---
INFORMATICS EDUCATOR OPENING NOTES: RECEIVED PATIENT AWAKE IN BED ACCOMPANIED BY FAMILY, BED IN LOW POSITION, CALL LIGHTS WITHIN REACH, NO COMPLAIN OF PAIN AND DIS COMFORT AT THIS TIME ON ROOM AIR SATURATING WELL, IV LINE AT RFA#22 WITH ONGOING NSS@100ML/HR INFUSING WELL, PATIENT ON TELE MONITOR- SR-93, PATIENT KEPT CLEAN AND DRY ALL NEEDS MET WILL CONTINUE TO MONITOR.
--- NOTE | 2021-11-17 22:23 | NUR ---
RN NOTES: HEPARIN WAS HOLD PER SEO PROFESSIONAL CHEVY FOR HGB LEVEL AT 7.0 PATIENT IS S/P BLOOD TRANSFUSION OF 1 BAG PRBC
[2021-11-18] VITALS: BP 135/67
[2021-11-18] MEDS: IV NS 0.9% 1,000 ML IV PRN ×2 (04:47→18:37)
[2021-11-18 05:57] VITALS: BP 154/76
[2021-11-18 06:16] LABS: BASOPHILS # (AUTO) 0.2 K/uL (0.0-0.2); EOSINOPHILS % (AUTO) 0.7 % (0.0-6.0); HEMATOCRIT 29 % (39-51); LYMPHOCYTES # (AUTO) 0.9 K/uL (0.8-4.8); LYMPHOCYTES % (AUTO) 4.1 % (20.0-44.0); MEAN CORPUSCULAR HGB CONC 33 g/dl (31.0-36.0); MEAN CORPUSCULAR VOLUME 88 fL (80-96); MONOCYTES # (AUTO) 1.1 K/uL (0.1-1.30); MONOCYTES % (AUTO) 4.6 % (2.0-12.0); NEUTROPHILS # (AUTO) 20.6 K/uL (1.8-8.9); NEUTROPHILS % (AUTO) 89.6 % (43.0-81.0); PLATELET COUNT (AUTO) 572 K/uL (150-450); RED BLOOD CELL COUNT(AUTO) 3.28 MIL/uL (4.5-6.0)
[2021-11-18 06:33] LABS: CALCIUM, SERUM 9.2 mg/dL (8.5-10.1); CREATININE 3.2 mg/dL (0.6-1.3); MAGNESIUM 1.9 mg/dL (1.8-2.4)
--- NOTE | 2021-11-18 06:46 | NUR ---
TYRE BUILDER CLOSING NOTES: PATIENT SLEEP IN BED COMFORTABLY, AROUSABLE TO VERBAL STIMULI, BED IN LOW POSITION CALL LIGHTS WITHIN REACH, NO COMPLAIN OF PAIN AND DISCOMFORT AT THIS TIME ON ROOM AIR SATURATING WELL, ON TELE [id number], ON ROJO CATHETER-1000CC URINE OUTPUT, IV LINE AT RFA#22 WITH ONGOING NSS@100ML/HR INFUSING WELL, PATIENT KEPT CLEAN AND DRY ALL NEEDS MET ENDORSE TO INCOMING SHIFT.
[2021-11-18 07:26] LABS: HEMOGLOBIN 9.4 g/dL (13.5-17.5)
--- NOTE | 2021-11-18 07:30 | NUR ---
RN Opening Note PT AOx4, able to express his own concerns. Patient shows no signs of distress or discomfort. Patient states he is waiting for his to come by. DVT pumps are connected and working at the moment. Repositioned patient and educated on importance of turning and repositioning. Patient only speaks Indonesian. Discussed plan of care and patient verbalized agreement. All safety precautions taken, call light and table within reach, bed at lowest position.
[2021-11-18 08:35] VITALS: BP 160/74
[2021-11-18] MEDS: PANTOPRAZOLE 40 MG TABLET.DR PO SCH (09:06)
[2021-11-18] MEDS: HEPARIN SODIUM, PORCINE 5000 UNITS/1 ML VIAL SQ SCH (09:06)
[2021-11-18] MEDS: HYDROMORPHONE 1 MG/1 ML DISP.SYRIN IV PRN (11:09)
[2021-11-18] MEDS: CEFTRIAXONE 2 G in IV D5W 100 ML IV SCH (12:08)
[2021-11-18 16:04] VITALS: BP 138/65
[2021-11-18] MEDS: ACETAMINOPHEN 325 MG TABLET PO PRN (16:09)
--- NOTE | 2021-11-18 19:10 | NUR ---
RN Closing Notes PT AOx4, able to express his own concerns, at bedside throughout the whole shift providing comfort care. Administered medications and IV fluids as prescribed, no sign of infiltration at IV site. All safety precautions taken, call light and table within reach, bed at lowest position.
--- NOTE | 2021-11-18 19:30 | NUR ---
RN OPENING NOTES RECEIVED PATIENT IN BED, A/O X 3, SPEAKS ONLY ESTONIAN, TOLERATING WELL ON ROOM AIR WITH NO S/S RESPIRATORY DISTRESS. NO COMPLAINTS OF PAIN OR DISCOMFORT AT THIS TIME. R HAND # 22 G CLEAN, INTACT, INFUSING NS @ 100 ML/HR. SAFETY MEASURES IN PLACE. BED IN LOWEST POSITION, SIDE RAILS UP X 2, WHEELS LOCKED, CALL LIGHT WITHIN REACH. WILL CONTINUE TO MONITOR.
[2021-11-18 20:43] VITALS: BP 129/69
[2021-11-19] VITALS (7 sets, daily range): BP systolic 128–163; BP diastolic 70–86
--- NOTE | 2021-11-19 06:34 | NUR ---
RN CLOSING N PATIENT IS IN BED SLEEPING, EASY TO ROUSE WITH STIMULI. NO DISTRESS NOTED AT THIS TIME. NO PAIN MEDS GIVEN WITHIN SHIFT. PATIENT PULLED HIS IV LINE LOCATED AT R HAND. PT IS NOW RESTING COMFORTABLY.
[2021-11-19 06:37] LABS: BASOPHILS # (AUTO) 0.1 K/uL (0.0-0.2); BASOPHILS % (AUTO) 0.5 % (0.0-2.0); EOSINOPHILS % (AUTO) 0.6 % (0.0-6.0); HEMATOCRIT 29 % (39-51); HEMOGLOBIN 9.5 g/dL (13.5-17.5); LYMPHOCYTES # (AUTO) 0.9 K/uL (0.8-4.8); LYMPHOCYTES % (AUTO) 4.6 % (20.0-44.0); MEAN CORPUSCULAR HGB CONC 33 g/dl (31.0-36.0); MEAN CORPUSCULAR VOLUME 88 fL (80-96); MONOCYTES # (AUTO) 0.9 K/uL (0.1-1.30); MONOCYTES % (AUTO) 4.6 % (2.0-12.0); NEUTROPHILS # (AUTO) 17.3 K/uL (1.8-8.9); NEUTROPHILS % (AUTO) 89.7 % (43.0-81.0); PLATELET COUNT (AUTO) 659 K/uL (150-450); WHITE BLOOD COUNT (AUTO) 19.3 K/uL (4.3-11.0)
[2021-11-19 06:40] LABS: CALCIUM, SERUM 9.1 mg/dL (8.5-10.1); POTASSIUM 3.7 mmol/L (3.5-5.1)
[2021-11-19 08:10] LABS: BAND % (MANUAL) 4 % (0.0-5.0); LYMPHOCYTES % (MANUAL) 4 % (16-48); MONOCYTES % (MANUAL) 4 % (0-11.0); NEUTROPHILS % (MANUAL) 88 (42-76)
[2021-11-19] MEDS: PANTOPRAZOLE 40 MG TABLET.DR PO SCH (08:37)
[2021-11-19] MEDS: ACETAMINOPHEN 325 MG TABLET PO PRN (10:30)
[2021-11-19] MEDS: CEFTRIAXONE 2 G in IV D5W 100 ML IV SCH (13:32)
[2021-11-19] MEDS: HYDROMORPHONE 1 MG/1 ML DISP.SYRIN IV PRN (16:15)
[2021-11-19] MEDS: LORAZEPAM 1 MG TABLET PO PRN (16:15)
--- NOTE | 2021-11-19 19:15 | NUR ---
RN OPENING NOTE RECEIVED PT IN BED AWAKE, A/OX3 CITIZEN OF [place] SPEAKING. NO SIGNS OF RESPIRATORY DISTRESS OR SOB NOTED. STABLE ON RA. TELE READING SR 88. RFA 22G INFUSING NS 100ML.HR. PT CAN MAKE NEEDS KNOWN. NO C/O OF PAIN AT THIS TIME. SAFETY CHECKS IN PLACE: BED LOCKED, BED IN LOWEST POSITION, CALL LIGHT WITHIN REACH. WILL CONT PLAN OF CARE.
--- NOTE | 2021-11-19 19:30 | NUR ---
RN Closing Notes PT AOx4, able to express his own concerns, at bedside throughout the whole shift providing comfort care. Administered medications and IV fluids as prescribed, IV 20g to RFA removed d/t infiltration at IV site and replaced to left FA #20g. Patent and flowing well. Patient left for MRI at 1645 and returned at 1730. All safety precautions taken, call light and table within reach, bed at lowest position.
[2021-11-19] MEDS: IV NS 0.9% 1,000 ML IV PRN (21:09)
[2021-11-20] VITALS: BP 126/68
[2021-11-20 00:03] VITALS: BP 126/68
[2021-11-20 04:00] VITALS: BP 143/68
[2021-11-20 06:18] LABS: BASOPHILS # (AUTO) 0.2 K/uL (0.0-0.2); BASOPHILS % (AUTO) 1.1 % (0.0-2.0); HEMATOCRIT 25 % (39-51); HEMOGLOBIN 8.4 g/dL (13.5-17.5); LYMPHOCYTES # (AUTO) 0.8 K/uL (0.8-4.8); LYMPHOCYTES % (AUTO) 4.8 % (20.0-44.0); MEAN CORPUSCULAR HGB CONC 34 g/dl (31.0-36.0); MEAN CORPUSCULAR VOLUME 87 fL (80-96); MONOCYTES # (AUTO) 0.7 K/uL (0.1-1.30); NEUTROPHILS # (AUTO) 15.7 K/uL (1.8-8.9); NEUTROPHILS % (AUTO) 89.1 % (43.0-81.0); PLATELET COUNT (AUTO) 655 K/uL (150-450); RED BLOOD CELL COUNT(AUTO) 2.86 MIL/uL (4.5-6.0); WHITE BLOOD COUNT (AUTO) 17.6 K/uL (4.3-11.0)
[2021-11-20 06:36] LABS: CREATININE 2.8 mg/dL (0.6-1.3); POTASSIUM 3.7 mmol/L (3.5-5.1)
--- NOTE | 2021-11-20 06:41 | NUR ---
RN CLOSING NOTE PT IN BED AWAKE, A/OX2. NO SIGNS OF RESPIRATORY DISTRESS OR SOB AT THIS TIME. ON RA TOLERATING WELL. TELE READING SR AT 96. LFA 20G INFUSING NS @100ML/HR. ALL NEEDS ATTENDED TO ALL SCHEDULED MEDS GIVEN. NO C/O OF PAIN AT THIS TIME. SAFETY CHECKS IN PLACE: BED LOCKED, BED IN LOWEST POSITION, SIDE RIALS X2, CALL LIGHT WITHIN REACH. WILL ENDORSE TO DAY SHIFT NURSE FOR JERARDO.
--- NOTE | 2021-11-20 07:35 | NUR ---
HEALTH AND HUMAN PERFORMANCE PROFESSOR OPENING NOTE RECEIVED PT IN BED AWAKE, A/OX2. [place] SPEAKING, NO SIGNS OF RESPIRATORY DISTRESS OR SOB AT THIS TIME. DENIED PAIN. ON RA TOLERATING WELL AT 98%. TELE READING SR AT 94-96 BPM. LFA 20G INFUSING NS @100ML/HR, PATENT, INFUSING WELL WITH NO S/SX OF INFECTION E.G REDNESS, PAIN. PATIENT IS ON ROJO DRAINING PALE YELLOW URINE AROUND 300 ML VIA GRAVITY. SAFETY PRECAUTIONS IN PLACE: BED LOCKED, BED IN LOWEST POSITION, BRAKES ON, SIDE RAILS X3, CALL LIGHT AND TRAY TABLE WITHIN REACH. WILL CONTINUE TO MONITOR DURING MY SHIFT.
[2021-11-20 08:00] VITALS: BP 140/76
[2021-11-20] MEDS: IV NS 0.9% 1,000 ML IV PRN (08:27)
[2021-11-20] MEDS: PANTOPRAZOLE 40 MG TABLET.DR PO SCH (08:27)
[2021-11-20] MEDS: CEFTRIAXONE 2 G in IV D5W 100 ML IV SCH (11:16)
--- NOTE | 2021-11-20 11:46 | NUR ---
RN NOTES COVID ANTIGEN TEST SPECIMEN COLLECTED AND SUBMITTED TO THE LAB.
[2021-11-20 12:52] LABS: NEUTROPHILS % (MANUAL) 86 (42-76)
[2021-11-20 12:53] LABS: BAND % (MANUAL) 2 % (0.0-5.0); EOSINOPHILS % (MANUAL) 2 % (0-4); LYMPHOCYTES % (MANUAL) 4 % (16-48); MONOCYTES % (MANUAL) 5 % (0-11.0)
[2021-11-20] MEDS: HYDROMORPHONE 1 MG/1 ML DISP.SYRIN IV PRN (13:46)
--- NOTE | 2021-11-20 13:46 | NUR ---
RN NOTES PATIENT COMPLAINING OFR 8/10 HIP/THIGH PAIN, GAVE DILAUDID 2MG, WILL REASSESS FOR EFFECTIVITY.
[2021-11-20 16:00] VITALS: BP 142/61
--- NOTE | 2021-11-20 17:54 | NUR ---
RN NOTES RECEIVED A CALL FROM OLGA [phone], REGARDING THE RESULTS OF THE MRI. INFORMED WILL RELAY TO . REACHED OUT TO RAI IQBAL NP BUT OFF DUTY ALREADY, WILL RELAY TO THE NEXT NURSE.
--- NOTE | 2021-11-20 19:15 | NUR ---
CIGARETTE MAKING MACHINE CATCHER CLOSING NOTE PT IN BED AWAKE, A/OX1-2, SALVADOREAN SPEAKING, CONFUSED AND HAVING VISUAL HALLUCINATIONS. TOLERATING WELL ON ROOM AIR NO SIGN SOB/DISTRESS NOTED.TELE READING SR AT 93 BPM. IV SITE @ LFA 20G INFUSING NS @100ML/HR, PT F/C DRAINED 1500 DARK YELLOW URINE DURING MY SHIFT. SAFETY PRECAUTIONS IN PLACE: BED LOCKED, BED IN LOWEST POSITION, BRAKES ON, SIDE RAILS X3, CALL LIGHT AND TRAY TABLE WITHIN REACH. ALL NEEDS MET, DUE MEDS GIVEN. WILL ENDORSE TO THE CLINICAL TRIAL HEAD NURSE.
--- NOTE | 2021-11-20 19:25 | NUR ---
RAILROAD SUPERVISOR OF ENGINES OPENING NOTE RECEIVED PT IN BED AWAKE, A/OX2. SYRIAC SPEAKING,AYUSH WELL ON RM AIR NO SIGN SOB/DISTRESS NOTED.TELE READING SR AT 95 BPM.IV SITE @ LFA 20G INFUSING NS @100ML/HR AYUSH WELL,PT NOTED F/C DRAINING JAIDEN URINE. SAFETY PRECAUTIONS IN PLACE: BED LOCKED, BED IN LOWEST POSITION, BRAKES ON, SIDE RAILS X3, CALL LIGHT AND TRAY TABLE WITHIN REACH. WILL CONTINUE TO MONITOR.
[2021-11-20 20:00] VITALS: BP 147/77
[2021-11-21] VITALS: BP 130/73
[2021-11-21] MEDS: IV NS 0.9% 1,000 ML IV PRN ×3 (00:27→23:15)
[2021-11-21 06:27] LABS: BASOPHILS # (AUTO) 0.3 K/uL (0.0-0.2); BASOPHILS % (AUTO) 1.9 % (0.0-2.0); EOSINOPHILS % (AUTO) 1.1 % (0.0-6.0); HEMATOCRIT 27 % (39-51); HEMOGLOBIN 8.7 g/dL (13.5-17.5); LYMPHOCYTES # (AUTO) 0.7 K/uL (0.8-4.8); LYMPHOCYTES % (AUTO) 4.7 % (20.0-44.0); MEAN CORPUSCULAR HGB CONC 33 g/dl (31.0-36.0); MEAN CORPUSCULAR VOLUME 90 fL (80-96); MONOCYTES # (AUTO) 0.8 K/uL (0.1-1.30); MONOCYTES % (AUTO) 5.2 % (2.0-12.0); NEUTROPHILS # (AUTO) 13.2 K/uL (1.8-8.9); NEUTROPHILS % (AUTO) 87.1 % (43.0-81.0); PLATELET COUNT (AUTO) 678 K/uL (150-450); RED BLOOD CELL COUNT(AUTO) 2.98 MIL/uL (4.5-6.0); WHITE BLOOD COUNT (AUTO) 15.1 K/uL (4.3-11.0)
--- NOTE | 2021-11-21 06:30 | NUR ---
RN CLOSING NOTE; PT IN BED AWAKE A/OX4.TOLL WELL ON RA.NO SIGN SOB/DISTRESS NOTED.NO COMPLAINE OF PAIN/DISCOMFORT DUIRNG SHIFT,DUE MEDS GIVEN ORDER,ALL NEDDS ATTENDED,IV SITE @ [facility] 22G INTACT AND PATENT SL,SAFETY MEASURE INPLACE: BED LOCKED, AND LOWEST POSITION, SIDE RAILS X2, CALL LIGHT WITHIN REACH. WILL ENDORSED TO NEXT SHIFT.
[2021-11-21 07:39] LABS: CALCIUM, SERUM 9.4 mg/dL (8.5-10.1); CREATININE 2.7 mg/dL (0.6-1.3); POTASSIUM 3.6 mmol/L (3.5-5.1)
--- NOTE | 2021-11-21 07:45 | NUR ---
HEALTH PROMOTER OPENING NOTE RECEIVED PT IN BED AWAKE, A/OX1, [place] SPEAKING, ON RA TOLERATING WELL, NO S/S OF SOB AND ACUTE DISTRESS NOTED.TELE READING SR AT 92 BPM. IV SITE @ [facility] 20G INFUSING NS @100ML/HR WELL. PT F/C DRAINING CLEAR DARK YELLOW URINE. SAFETY PRECAUTIONS IN PLACE: BED LOCKED, BED IN LOWEST POSITION, BRAKES ON, SIDE RAILS X3, CALL LIGHT AND TABLE WITHIN REACH, WILL CONT WITH PLAN OF CARE.
[2021-11-21 08:00] VITALS: BP 142/75
[2021-11-21] MEDS: PANTOPRAZOLE 40 MG TABLET.DR PO SCH (08:33)
[2021-11-21] MEDS: CEFTRIAXONE 2 G in IV D5W 100 ML IV SCH (11:00)
[2021-11-21 12:00] VITALS: BP_SYST 136; BP_SYST 145; BP_DIAS 76; BP_DIAS 78
[2021-11-21 16:00] VITALS: BP_SYST 147; BP_SYST 157; BP_DIAS 77
[2021-11-21] MEDS: DEXAMETHASONE SOD PHOSPHATE 4 MG/ML VIAL IV SCH ×2 (16:43→17:50)
--- NOTE | 2021-11-21 18:52 | NUR ---
BEDSPREAD CUTTER CLOSING NOTES: PT IN BED AWAKE, A/OX1, MONGOL[place] SPEAKING, ON RA TOLERATING WELL, NO S/S OF SOB AND ACUTE DISTRESS NOTED. SPOUSE OLGA AT BEDSIDE. TELE READING SR/ST AT 100 BPM. IV SITE @ [facility] 20G INFUSING NS @100ML/HR; S/P CRISTEL PICC LINE PLACEMENT. PT F/C DRAINING CLEAR DARK YELLOW URINE, OUTPUT= 1200 DURING SHIFT. SAFETY PRECAUTIONS IN PLACE: BED LOCKED, BED IN LOWEST POSITION, BRAKES ON, SIDE RAILS X3, CALL LIGHT AND TABLE WITHIN REACH, WILL ENDORSE TO PM SHIFT.
[2021-11-21 20:00] VITALS: BP 139/88
--- NOTE | 2021-11-21 20:07 | NUR ---
WOOL HAT FLANGER OPENING NOTE RECEIVED PT IN BED AWAKE, A/OX2. B[place]GAL[place] SPEAKING,AYUSH WELL ON RM AIR NO SIGN SOB/DISTRESS NOTED.TELE READING SR AT 95 BPM.IV SITE @ [facility] 20G INFUSING NS @100ML/HR AYUSH WELL,PT NOTED F/C DRAINING JAIDEN URINE. SAFETY PRECAUTIONS IN PLACE: BED LOCKED, BED IN LOWEST POSITION, BRAKES ON, SIDE RAILS X3, CALL LIGHT AND TRAY TABLE WITHIN REACH. WILL CONTINUE TO MONITOR.
[2021-11-22] VITALS: BP 138/81
[2021-11-22] MEDS: DEXAMETHASONE SOD PHOSPHATE 4 MG/ML VIAL IV SCH ×5 (00:14→23:50)
--- NOTE | 2021-11-22 01:00 | NUR ---
RN NOTES; JAXON FROM [facility] CALLED REGARDING PT H&P,CLINICAL,LATEST LABS,MEDS.IMAGING TO FAX IT TO HER.SHE SAID WAITING FOR FINANCIAL ISSUE.
[2021-11-22 04:00] VITALS: BP 142/72
[2021-11-22 06:14] LABS: BASOPHILS % (AUTO) 0.3 % (0.0-2.0); EOSINOPHILS % (AUTO) 0.1 % (0.0-6.0); HEMATOCRIT 29 % (39-51); HEMOGLOBIN 9.1 g/dL (13.5-17.5); LYMPHOCYTES # (AUTO) 0.4 K/uL (0.8-4.8); LYMPHOCYTES % (AUTO) 3.9 % (20.0-44.0); MEAN CORPUSCULAR HGB CONC 32 g/dl (31.0-36.0); MEAN CORPUSCULAR VOLUME 90 fL (80-96); MONOCYTES # (AUTO) 0.1 K/uL (0.1-1.30); MONOCYTES % (AUTO) 1.3 % (2.0-12.0); NEUTROPHILS # (AUTO) 10.4 K/uL (1.8-8.9); NEUTROPHILS % (AUTO) 94.4 % (43.0-81.0); PLATELET COUNT (AUTO) 726 K/uL (150-450); RED BLOOD CELL COUNT(AUTO) 3.17 MIL/uL (4.5-6.0)
[2021-11-22 06:28] LABS: CREATININE 2.4 mg/dL (0.6-1.3); POTASSIUM 4.1 mmol/L (3.5-5.1)
--- NOTE | 2021-11-22 06:29 | NUR ---
RN CLOSING NOTE;322 PT IN BED AWAKE A/OX4.TOLL WELL ON RA.NO SIGN SOB/DISTRESS NOTED.NO COMPLAINE OF PAIN/DISCOMFORT DUIRNG SHIFT,DUE MEDS GIVEN ORDER,ALL NEDDS ATTENDED,IV SITE @ [facility] 22G/CRISTEL PICC LINE,INTACT AND PATENT SL,PT F/C DRAINING JAIDEN URINE WITH OUTPUT [id number],SAFETY MEASURE INPLACE: BED LOCKED, AND LOWEST POSITION, SIDE RAILS X2, CALL LIGHT WITHIN REACH. WILL ENDORSED TO NEXT SHIFT.
--- NOTE | 2021-11-22 07:16 | NUR ---
INSTRUCTIONAL MATERIALS DIRECTOR OPENING NOTES: PT IN BED AWAKE, A/OX1, IRANIAN SPEAKING, ON RA TOLERATING WELL. NO S/S OF SOB AND ACUTE DISTRESS NOTED. TELE READING SR AT 88 BPM. IV SITE @ LFA 20G INFUSING NS @100ML/HR; S/P CRISTEL PICC LINE PLACEMENT 11/21/21, CLEAN, DRY INTACT. PT F/C DRAINING CLEAR DARK YELLOW URINE. SAFETY PRECAUTIONS IN PLACE: BED LOCKED, BED IN LOWEST POSITION, BRAKES ON, SIDE RAILS X3, CALL LIGHT AND TABLE WITHIN REACH, WILL CARRY OUT PLAN OF CARE THROUGHOUT SHIFT.
[2021-11-22] MEDS: PANTOPRAZOLE 40 MG TABLET.DR PO SCH (08:38)
[2021-11-22] MEDS: IV NS 0.9% 1,000 ML IV PRN ×2 (09:31→23:59)
--- NOTE | 2021-11-22 10:30 | NUR ---
MS MACDONALDSAP BODS DEVELOPER NOTES; CARRIED OUT DC ORDER PER DNP, PT CONDITION IS STABLE, VS WNL. BP- 128/76, HR- 61, TEMP- 98.3, RR- 18, O2 SAT 99%. NO S/S OF SOB AND ACUTE DISTRESS NOTED UPON DC. WOUND CARE DONE, PHOTO DOCUMENTED AND ATTACHED TO CHART. DC INSTRUCTIONS, BELONGINGS AND MEDICATION TEACHING DONE AT BEDSIDE WITH PT AND SPOUSE, PT VERBALIZED UNDERSTANDING AND SIGNED. PT AMBULATORY, ESCORTED TO LOBBY BY RN, SPOUSE WILL DRIVE PT HOME USING PERSONAL CAR. Addendum: 11/22/21 at 1152 by NICO GIFFORD RN PLS DISREGARD, THIS DOCUMENTATION IS NOT FOR THIS PT
[2021-11-22] MEDS: CEFTRIAXONE 2 G in IV D5W 100 ML IV SCH (11:27)
[2021-11-22 11:55] LABS: LYMPHOCYTES % (MANUAL) 5 % (16-48); MONOCYTES % (MANUAL) 1 % (0-11.0); NEUTROPHILS % (MANUAL) 94 (42-76)
[2021-11-22 13:07] VITALS: BP 159/78
[2021-11-22] MEDS: HYDROMORPHONE 1 MG/1 ML DISP.SYRIN IV PRN (14:27)
--- NOTE | 2021-11-22 15:00 | NUR ---
COMMUNICATIONS ASSISTANT NOTES: RN ASSISTED WITH ULTRASOUND GUIDED PERCUTANEOUS ABSCESS DRAINAGE AT BEDSIDE DONE BY MD WM. CONSENT ACQUIRED FOR PROCEDURE VIA TELEPHONE WITH PT'S PARTNER OLGA, WITNESSED AND SIGNED BY 2 RNS. PRN PAIN MEDICATION GIVEN BEFORE PROCEDURE, PT'S VITALS STABLE BEFORE AND AFTER PROCEDURE, FLUID WAS SENT TO LAB FOR CULTURE.
[2021-11-22 16:05] VITALS: BP 148/80
--- NOTE | 2021-11-22 18:40 | NUR ---
MS RN NOTES: PT IN BED ASLEEP, A/OX1, CHILEAN SPEAKING, ON RA TOLERATING WELL. NO S/S OF SOB AND ACUTE DISTRESS NOTED. TELE READING SR AT 81 BPM. IV SITE @ LFA 20G INFUSING NS @100ML/HR; S/P CRISTEL PICC LINE PLACEMENT 11/21/21, CLEAN, DRY INTACT AND FLUSHING WELL. S/P LOWER BACK ABSCESS DRAINAGE 11/22/21. PT F/C DRAINING CLEAR YELLOW URINE; TOTAL URINE OUTPUT = 1100 THROUGHOUT SHIFT. SAFETY PRECAUTIONS IN PLACE: BED LOCKED, BED IN LOWEST POSITION, BRAKES ON, SIDE RAILS X3, CALL LIGHT AND TABLE WITHIN REACH, WILL ENDORSE TO PM SHIFT.
--- NOTE | 2021-11-22 19:42 | NUR ---
TRADE SALES ASSISTANT OPENING NOTE RECEIVED PT IN BED AWAKE, A/OX2. LUXEMBOURGISH SPEAKING,AYUSH WELL ON RM AIR NO SIGN SOB/DISTRESS NOTED.TELE READING SR AT 95 BPM.IV SITE @ CRISTEL MIDLINE AND LFA 20G INFUSING NS @100ML/HR AYUSH WELL,PT NOTED F/C DRAINING JAIDEN URINE. SAFETY PRECAUTIONS IN PLACE: BED LOCKED, BED IN LOWEST POSITION, BRAKES ON, SIDE RAILS X3, CALL LIGHT AND TRAY TABLE WITHIN REACH. WILL CONTINUE TO MONITOR.
[2021-11-22 21:00] VITALS: BP 155/92
[2021-11-23 00:10] VITALS: BP 162/77
[2021-11-23 03:52] VITALS: BP 140/85
[2021-11-23] MEDS: DEXAMETHASONE SOD PHOSPHATE 4 MG/ML VIAL IV SCH ×4 (05:05→23:12)
--- NOTE | 2021-11-23 06:15 | NUR ---
RN CLOSING NOTE; PT IN BED AWAKE A/OX4.TOLL WELL ON RA.NO SIGN SOB/DISTRESS NOTED.NO COMPLAINE OF PAIN/DISCOMFORT DUIRNG SHIFT,DUE MEDS GIVEN ORDER,ALL NEDDS ATTENDED,IV SITE @ LFA 22G/CRISTEL PICC LINE,INTACT AND PATENT SL,,SAFETY MEASURE INPLACE: BED LOCKED, AND LOWEST POSITION, SIDE RAILS X2, CALL LIGHT WITHIN REACH. WILL ENDORSED TO NEXT SHIFT.
[2021-11-23 07:04] LABS: BASOPHILS # (AUTO) 0.1 K/uL (0.0-0.2); BASOPHILS % (AUTO) 0.6 % (0.0-2.0); HEMATOCRIT 30 % (39-51); HEMOGLOBIN 9.5 g/dL (13.5-17.5); LYMPHOCYTES # (AUTO) 0.7 K/uL (0.8-4.8); LYMPHOCYTES % (AUTO) 5.1 % (20.0-44.0); MEAN CORPUSCULAR HGB CONC 32 g/dl (31.0-36.0); MEAN CORPUSCULAR VOLUME 93 fL (80-96); MONOCYTES # (AUTO) 0.6 K/uL (0.1-1.30); MONOCYTES % (AUTO) 4.4 % (2.0-12.0); NEUTROPHILS # (AUTO) 11.9 K/uL (1.8-8.9); NEUTROPHILS % (AUTO) 89.9 % (43.0-81.0); PLATELET COUNT (AUTO) 770 K/uL (150-450); WHITE BLOOD COUNT (AUTO) 13.2 K/uL (4.3-11.0)
[2021-11-23 07:11] LABS: CREATININE 2.4 mg/dL (0.6-1.3); POTASSIUM 3.9 mmol/L (3.5-5.1)
--- NOTE | 2021-11-23 07:40 | NUR ---
FITTER'S ASSISTANT OPENING NOTES: PT IN BED AWAKE, A/OX1, BARBADIAN SPEAKING, ON RA TOLERATING WELL. NO S/S OF SOB AND ACUTE DISTRESS NOTED. TELE READING SR AT 64 BPM. IV SITE @ LFA 20G INFUSING NS @100ML/HR; S/P CRISTEL PICC LINE PLACEMENT 11/21/21, CLEAN, DRY INTACT. PT F/C DRAINING CLEAR DARK YELLOW URINE. SAFETY PRECAUTIONS IN PLACE: BED LOCKED, BED IN LOWEST POSITION, BRAKES ON, SIDE RAILS X3, CALL LIGHT AND TABLE WITHIN REACH, WILL CARRY OUT PLAN OF CARE THROUGHOUT SHIFT.
[2021-11-23] MEDS: PANTOPRAZOLE 40 MG TABLET.DR PO SCH (08:20)
[2021-11-23] MEDS: CLONIDINE HCL 0.1 MG TABLET PO PRN ×2 (08:21→19:49)
[2021-11-23 08:26] VITALS: BP 177/88
[2021-11-23] MEDS: CEFTRIAXONE 2 G in IV D5W 100 ML IV SCH (11:43)
[2021-11-23 17:25] LABS: LYMPHOCYTES % (MANUAL) 6 % (16-48); MONOCYTES % (MANUAL) 3 % (0-11.0); NEUTROPHILS % (MANUAL) 91 (42-76)
--- NOTE | 2021-11-23 18:43 | NUR ---
RN CLOSING NOTE PT IN BED AWAKE A/O X 4. NO S/S SOB OR DYSPNEA NOTED. NO COMPLAINTS OF PAIN/DISCOMFORT DURING SHIFT. MEDS GIVEN ORDERED AND ALL NEEDS MET. IV SITE @ LFA 22G/CRISTEL PICC LINE INTACT AND PATENT, SL. SINUS RHYTHM AT 74 BPM AT 1838. SAFETY MEASURES IN PLACE: BED LOCKED AND IN LOWEST POSITION, SIDE RAILS UP X 2, CALL LIGHT WITHIN REACH. WILL ENDORSE TO NEXT SHIFT FOR JERARDO.
--- NOTE | 2021-11-23 19:30 | NUR ---
HORSERADISH GRINDER OPENING NOTES RECEIVED PT LYING IN BED COMFORTABLY. A/O X1, NEEDS FREQUENT RE-ORIENTATION. BREATHING EVEN AND NON-LABORED ON ROOM AIR. NO C/O PAIN OR DISCOMFORT AT THIS TIME. NOT IN APPARENT DISTRESS. ON TELE MONITOR READING SINUS RHYTHM AT 89 BPM. HAS LEFT FOREARM IV ACCESS #20G AND RIGHT UPPER ARM PICC LINE, BOTH SALINE LOCKED. NO S/S OF INFILTRATION NOTED. HAS ROJO CATHETER DRAINING CLEAR YELLOW URINE TO BAG VIA GRAVITY. SAFETY MEASURES IN PLACED: BED LOCKED AND IN LOWEST POSITION, SIDE RAILS UP X3, CALL LIGHT WITHIN REACH. WILL CONTINUE POC.
[2021-11-23 20:00] VITALS: BP 160/78
[2021-11-24] VITALS: BP 125/77
[2021-11-24 04:00] VITALS: BP 116/86
[2021-11-24] MEDS: DEXAMETHASONE SOD PHOSPHATE 4 MG/ML VIAL IV SCH ×5 (05:46→23:45)
[2021-11-24 05:59] LABS: BASOPHILS % (AUTO) 0.4 % (0.0-2.0); HEMATOCRIT 28 % (39-51); HEMOGLOBIN 9.3 g/dL (13.5-17.5); LYMPHOCYTES # (AUTO) 0.6 K/uL (0.8-4.8); LYMPHOCYTES % (AUTO) 6.7 % (20.0-44.0); MEAN CORPUSCULAR HGB CONC 33 g/dl (31.0-36.0); MEAN CORPUSCULAR VOLUME 88 fL (80-96); MONOCYTES # (AUTO) 0.4 K/uL (0.1-1.30); MONOCYTES % (AUTO) 4.6 % (2.0-12.0); NEUTROPHILS # (AUTO) 7.8 K/uL (1.8-8.9); NEUTROPHILS % (AUTO) 88.3 % (43.0-81.0); PLATELET COUNT (AUTO) 740 K/uL (150-450); RED BLOOD CELL COUNT(AUTO) 3.19 MIL/uL (4.5-6.0); WHITE BLOOD COUNT (AUTO) 8.8 K/uL (4.3-11.0)
[2021-11-24 06:33] LABS: CALCIUM, SERUM 9.2 mg/dL (8.5-10.1); CREATININE 2.2 mg/dL (0.6-1.3); POTASSIUM 4.1 mmol/L (3.5-5.1)
--- NOTE | 2021-11-24 06:46 | NUR ---
MACHINE RECORDS UNITS SUPERVISOR CLOSING NOTES PT LYING IN BED AWAKE. A/O X1, CONFUSED AND NEEDS FREQUENT RE-ORIENTATION. NO SOB OR NOTED, TOLERATING ROOM AIR WELL. NO C/O PAIN OR DISCOMFORT. AFEBRILE. ON TELE MONITOR READING SINUS RHYTHM WITH SLIGHTLY ELEVATED T-WAVE AT 75 BPM. HAS LEFT FOREARM IV ACCESS #20G AND RIGHT UPPER ARM PICC LINE, BOTH SALINE LOCKED. INTACT, PATENT AND FLUSHING. HAS ROJO CATHETER DRAINING CLEAR YELLOW URINE TO BAG VIA GRAVITY. OUTPUT OF 1300 ML. ALL DUE MEDS GIVEN AND NEEDS ATTENDED. SKIN CARE RENDERED. SAFETY MEASURES MAINTAINED: BED LOCKED AND IN LOWEST POSITION, SIDE RAILS UP X3, CALL LIGHT WITHIN REACH. WILL ENDORSE FOR JERARDO.
--- NOTE | 2021-11-24 07:45 | NUR ---
RN OPENING NOTES RECEIVED PATIENT ON BED ASLEEP BUT AROUSABLE , ROOM AIR AND TOLERATING WELL , NO SOB OF DISTRESS NOTED , ON TELE WITH GENETICS PHYSICIAN READING OF SR WITH T WAVE @75 , NO C/ O OF APIN AND DISCOMFORT AT THIS TIME , SIDE RAILS X 2, SAFETY PRECAUTIONS PROVIDED AND WILL CONTINUE TO MONITOR
[2021-11-24 08:00] VITALS: BP 125/72
[2021-11-24] MEDS: PANTOPRAZOLE 40 MG TABLET.DR PO SCH (08:20)
[2021-11-24] MEDS: ASPIRIN 81 MG TAB.CHEW PO SCH (11:52)
[2021-11-24 12:00] VITALS: BP 102/46
[2021-11-24] MEDS: CEFTRIAXONE 2 G in IV D5W 100 ML IV SCH (12:29)
[2021-11-24 16:00] VITALS: BP 108/58
--- NOTE | 2021-11-24 18:37 | NUR ---
OFFSHORE DIVER CLOSING NOTES NOTES PATIENT ON BED AWAKE , A/O X 1 , CONFUSED , AZERI SPEAKING , ROOM AIR AND TOLERATING WELL , NO SOB OF DISTRESS NOTED , ON TELE WITH SALES AND BUSINESS DEVELOPMENT MANAGER READING OF SR @75 HR , NO C/ O OF PAIN AND DISCOMFORT AT THIS TIME , ALL DUE MEDS GIVEN AND IV ATB ORDERED , SIDE RAILS X 2, SAFETY PRECAUTIONS PROVIDED AND WILL ENDORSED TO NEXT SHIFT
--- NOTE | 2021-11-24 19:30 | NUR ---
noc rn opening note received patient in bed with HOB elevated, patient is alert and oriented only to name. no s/s of apparent distress on room air and denies any pain. tele monitor reading sr with 78 bpm. gallardo cath draining clear, jarrett urine. r. ua picc line in place, and l. fa #20g in saline lock flushing well. re-oriented and encouraged with the use of call light. safety in place. will continue with patient's plan of care.
[2021-11-24 20:00] VITALS: BP 157/75
[2021-11-24] MEDS: ATORVASTATIN 10 MG TABLET PO SCH (21:41)
[2021-11-25 04:00] VITALS: BP 132/89
[2021-11-25] MEDS: DEXAMETHASONE SOD PHOSPHATE 4 MG/ML VIAL IV SCH ×4 (06:12→23:58)
--- NOTE | 2021-11-25 06:36 | NUR ---
noc rn closing patient in bed, did not sleep at all tonight and very confused. a/ox1 to name only. tele monitor reading sr throughout shift with 83bpm this am. no s/s of apparent distress on room air. denies pain at this time. gallardo catheter draining clear, jarrett urine with 1,300 ml of uo. r. ua picc line and l. fa #20g intact and patent on saline lock. all needs attended. all scheduled medications administered. safety in place. will endorse to morning shift rn for continuity of patient care.
--- NOTE | 2021-11-25 07:35 | NUR ---
TELEPHONE WORKER OPENING NOTE PATIENT IS IN BED. PATIENT IS ALERT AND ORIENTED X1.PATIENT IS VERY CONFUSED. PATIENT IS ON TELE MONITOR READING SINUS RHYTM. NO SIGNS OF PAIN OR DISCOMFORT.PATIENT IS ON ROOM AIR.ROJO CATHETHER YELLOW/ORANGE OUTPUT DRAINING TO GRAVITY. PATIENT HAS RIGHT UPPER ARM PICC LINE. IV PATENT AND FLUSHING WELL. ALL SAFETY MEASURES IN PLACE. CALL LIGHT WITH REACH. BED LOCKED AT LOWEST POSITION. SIDE RAILS UP X2. BED ALARM ON
[2021-11-25 08:00] VITALS: BP 152/92
[2021-11-25] MEDS: ASPIRIN 81 MG TAB.CHEW PO SCH (08:16)
[2021-11-25] MEDS: PANTOPRAZOLE 40 MG TABLET.DR PO SCH (08:16)
[2021-11-25] MEDS: LORAZEPAM 1 MG TABLET PO PRN (11:47)
[2021-11-25 12:00] VITALS: BP_SYST 100; BP_SYST 141; BP_DIAS 75; BP_DIAS 87
--- NOTE | 2021-11-25 12:30 | NUR ---
patient went for MRI
[2021-11-25] MEDS: CEFTRIAXONE 2 G in IV D5W 100 ML IV SCH (13:20)
[2021-11-25 16:00] VITALS: BP 149/79
--- NOTE | 2021-11-25 18:44 | NUR ---
received results from [facility] .notified enzo leong and on results of mri Addendum: 11/25/21 at 1922 by AISLINN KELLY RN enzo leong aware and recommends pt needs higher level of acuity
--- NOTE | 2021-11-25 18:47 | NUR ---
PULMONOLOGIST/INTENSIVIST CLOSING NOTE PATIENT IS IN BED. PATIENT IS ALERT AND ORIENTED X1.PATIENT IS VERY CONFUSED. PATIENT IS MALAY SPEAKING. PATIENT CAN'T MOVE ARM AND LEGS THROUGHOUT SHIFT. PATIENT HAS SEVERE WEAKNESS AND LIMITED MOBILITY. PATIENT IS ON TELE MONITOR READING SINUS RHYTHM.ALL NEEDS MET. NO SIGNS OF PAIN OR DISCOMFORT.PATIENT IS ON ROOM AIR.ROJO CATHETER YELLOW OUTPUT DRAINING TO GRAVITY. PATIENT HAS RIGHT UPPER ARM PICC LINE. IV PATENT AND FLUSHING WELL. ALL SAFETY MEASURES IN PLACE. CALL LIGHT WITH REACH. BED LOCKED AT LOWEST POSITION. SIDE RAILS UP X2. BED ALARM ON
--- NOTE | 2021-11-25 19:56 | NUR ---
noc rn opening note received patient in bed with HOB elevated, patient is alert and oriented only to name. no s/s of apparent distress on room air and denies any pain. tele monitor reading sr with 83 bpm. gallardo cath draining clear, jarrett urine. r. ua picc line in place, and l. fa #20g in saline lock flushing well. re-oriented and encouraged with the use of call light. safety in place. will continue with patient's plan of care.
[2021-11-25 20:08] VITALS: BP 151/81
[2021-11-25] MEDS: ATORVASTATIN 10 MG TABLET PO SCH (22:08)
[2021-11-25] MEDS: HYDROMORPHONE 1 MG/1 ML DISP.SYRIN IV PRN (22:51)
--- NOTE | 2021-11-25 22:55 | NUR ---
noc rn note patient found crying and when asked if he is in pain he said yes and wanting pain medication. given dilaudid 2mg prn as ordered. will re-assess.
[2021-11-26 00:06] VITALS: BP 137/74
[2021-11-26 04:00] VITALS: BP_SYST 151; BP_SYST 167; BP_DIAS 83; BP_DIAS 97
[2021-11-26] MEDS: DEXAMETHASONE SOD PHOSPHATE 4 MG/ML VIAL IV SCH ×2 (05:13→12:40)
--- NOTE | 2021-11-26 06:34 | NUR ---
omnicell discrepancy- returned dilaudid I went to the patient and per him he has reddy copeland, asked if he wanted pain medication and per patient yes. I got the dilaudid from the omnicell and came back to patient and asked him again, and this time per patient he said no. returned unopened vial of 2 dilaudid 2mg eac. witnessed by rn Jesse,. Patient laying comfortably rn watching tv.
--- NOTE | 2021-11-26 06:41 | NUR ---
noc rn closing patient in bed. a/ox1 to name only. tele monitor reading sr throughout shift with 69bpm this am. no s/s of apparent distress on room air. denies pain at this time. gallardo catheter draining clear, jarrett urine with 1,500 ml of uo. r. ua picc line and l. fa #20g intact and patent on saline lock. all needs attended. all scheduled medications administered. safety in place. will endorse to morning shift rn for continuity of patient care.
[2021-11-26] MEDS ORDERED: HYDROMORPHONE INJ 2 MG/ML DISP.SYRIN IV PRN (07:00)
[2021-11-26 07:28] LABS: CREATININE 2.4 mg/dL (0.6-1.3); POTASSIUM 4.2 mmol/L (3.5-5.1)
--- NOTE | 2021-11-26 07:40 | NUR ---
GERONTOLOGY AIDE OPENING NOTE PATIENT RECEIVED IN BED AND SLEEPING. A/OX4 AND ABLE TO VERBALIZE ALL NEEDS. PATIENT REMAINS ON ROOM AIR WITH NO S/SX OF RESPIRATORY DISTRESS. NO S/SX OF PAIN OBSERVED UPON ASSESSMENT. SAFETY MEASURES IN PLACE WITH BED LOW AND LOCKED. CALL LIGHT WITHIN REACH. WILL CONT TO MONITOR. Addendum: 11/26/21 at 0819 by MICHAEL JONES RN GERONTOLOGY AIDE OPENING NOTE PATIENT RECEIVED IN BED AND AWAKE. A/OX1 AND CONFUSED. PATIENT REMAINS ON ROOM AIR WITH NO S/SX OF RESPIRATORY DISTRESS. NO S/SX OF PAIN OBSERVED UPON ASSESSMENT. SAFETY MEASURES IN PLACE WITH BED LOW AND LOCKED. CALL LIGHT WITHIN REACH. WILL CONT TO MONITOR.
[2021-11-26 07:44] LABS: BASOPHILS % (AUTO) 0.1 % (0.0-2.0); HEMATOCRIT 28 % (39-51); HEMOGLOBIN 9.1 g/dL (13.5-17.5); LYMPHOCYTES # (AUTO) 0.7 K/uL (0.8-4.8); LYMPHOCYTES % (AUTO) 5.8 % (20.0-44.0); MEAN CORPUSCULAR HGB CONC 33 g/dl (31.0-36.0); MEAN CORPUSCULAR VOLUME 88 fL (80-96); MONOCYTES # (AUTO) 0.7 K/uL (0.1-1.30); MONOCYTES % (AUTO) 5.7 % (2.0-12.0); NEUTROPHILS # (AUTO) 10.5 K/uL (1.8-8.9); NEUTROPHILS % (AUTO) 88.4 % (43.0-81.0); PLATELET COUNT (AUTO) 717 K/uL (150-450); RED BLOOD CELL COUNT(AUTO) 3.16 MIL/uL (4.5-6.0); WHITE BLOOD COUNT (AUTO) 11.8 K/uL (4.3-11.0)
[2021-11-26 08:00] VITALS: BP 157/84
[2021-11-26] MEDS: PANTOPRAZOLE 40 MG TABLET.DR PO SCH (08:45)
[2021-11-26] MEDS: ASPIRIN 81 MG TAB.CHEW PO SCH (08:45)
[2021-11-26] MEDS: CEFTRIAXONE 2 G in IV D5W 100 ML IV SCH (11:56)
[2021-11-26 12:00] VITALS: BP 143/88
--- NOTE | 2021-11-26 18:17 | NUR ---
SUPERVISOR PRINTING SHOP NOTE PATIENT DISCHARGED FROM FACILITY VIA GURNEY AND AMBULANCE @ 1810. TRANSFERRED TO [facility] FOR HIGHER LEVEL OF CARE. , OLGA, NOTIFIED. ALL BELONGINGS TAKEN BY ON PREVIOUS VISIT. RECEIVING NURSE, BRENDA, GIVEN REPORT. PATIENT STABLE AND A/O X2-3 UPON TRANSFER
== END 2021-11-26 18:00 | disposition short-term general hospital (02) | DRG 720 ==
LOC: TELE 18:04
PROVIDERS: ADMIT Nurse Practitioner Acute Care; ATTEND Nurse Practitioner Acute Care
PROC: 30233N1 Transfusion of Nonautologous Red Blood Cells into Peripheral Vein, Percutaneous Approach (ICD-10-PCS; principal; 2021-11-11)
DX: A41.01 Sepsis due to Methicillin susceptible Staphylococcus aureus (principal); N17.0 Acute kidney failure with tubular necrosis; G06.1 Intraspinal abscess and granuloma; G93.41 Metabolic encephalopathy; G82.20 Paraplegia, unspecified; E87.1 Hypo-osmolality and hyponatremia; D63.8 Anemia in other chronic diseases classified elsewhere; G95.20 Unspecified cord compression; M48.02 Spinal stenosis, cervical region; M48.04 Spinal stenosis, thoracic region; I69.354 Hemiplegia and hemiparesis following cerebral infarction affecting left non-dominant side; J18.9 Pneumonia, unspecified organism; I25.10 Atherosclerotic heart disease of native coronary artery without angina pectoris; Z99.2 Dependence on renal dialysis; B96.89 Other specified bacterial agents as the cause of diseases classified elsewhere; N13.6 Pyonephrosis; M51.36 Other intervertebral disc degeneration, lumbar region; N28.82 Megaloureter; M89.8X9 Other specified disorders of bone, unspecified site; D50.9 Iron deficiency anemia, unspecified; N10 Acute pyelonephritis; N30.90 Cystitis, unspecified without hematuria; N28.89 Other specified disorders of kidney and ureter; M47.816 Spondylosis without myelopathy or radiculopathy, lumbar region; M47.814 Spondylosis without myelopathy or radiculopathy, thoracic region; M48.061 Spinal stenosis, lumbar region without neurogenic claudication; M25.78 Osteophyte, vertebrae; M43.16 Spondylolisthesis, lumbar region; B95.61 Methicillin susceptible Staphylococcus aureus infection as the cause of diseases classified elsewhere; N18.9 Chronic kidney disease, unspecified
CPT/HCPCS: 36415; 36569; 70450-TC; 70551-TC; 71045-TC; 72146-TC; 72148-TC; 72156-TC; 75989; 76770-TC; 76882; 80048-TC; 80061-TC; 80202-TC; 81001; 82378; 82607-TC; 82728-TC; 82784; 82962-TC; 83540-TC; 83735-TC; 84100-TC; 84155; 84165; 84443-TC; 85025-TC; 85610-TC; 85652-TC; 86334; 86706; 86803; 86850-TC; 87040-TC; 87070-TC; 87081-TC; 87086-TC; 87340; 87806; 92526; 92611-TC; 93307-TC; 93970-TC; 97116-TC; 97530-TC; A6253; C9113; G0378; J0692; J0696; J1100; J1170; J1644; J3370; J7030; J7040; J7042; J7050; J7060; P9016